=== PATIENT | female | born 1975 | race Caucasian/White ===

== ENCOUNTER 2018-08-28 03:21 | Inpatient (IN) | payer SELFPAY ==
[2018-08-28] MEDS: NS 1,000 ML IV ×4 (04:15→22:01)
[2018-08-28] MEDS: CHARCOAL ACTIVATED LIQUID 25 GM/120 ML BTL PO (04:15)
[2018-08-28 04:23] LABS: BASO # 0.1 10^3/uL (0.0-0.2); BASO % 0.4 % (0.0-1.0); EOS # 0.2 10^3/uL (0.0-0.50); EOS % 1.3 % (0.0-3.0); HEMATOCRIT 41.5 % (36.0-47.0); HEMOGLOBIN 13.9 g/dl (12.0-15.5); IMMATURE GRANULOCYTE % 0.5 % (0-3.0); LYMPH # 2.7 10^3/uL (1.5-4.5); LYMPH % 23.5 % (24.0-44.0); MEAN CORPUSCULAR HEMOGLOBIN 30.2 pg (27.0-33.0); MEAN CORPUSCULAR HGB CONC 33.5 g/dl (32.0-36.5); MEAN CORPUSCULAR VOLUME 90.2 fl (80.0-96.0); MONO # 0.8 10^3/uL (0.0-0.8); MONO % 7.1 % (0.0-5.0); NEUTROPHILS # 7.6 10^3/uL (1.8-7.7); NEUTROPHILS % 67.2 % (36.0-66.0); PLATELET COUNT, AUTOMATED 332 10^3/uL (150-450); RED CELL DISTRIBUTION WIDTH 13.5 % (11.5-14.5); WHITE BLOOD COUNT 11.3 10^3/uL (4.0-10.0)
[2018-08-28] MEDS ORDERED: ONDANSETRON 4MG/2ML VIAL (J2405) As Ordered (04:24)
[2018-08-28] MEDS: ONDANSETRON 4MG/2ML VIAL (J2405) IV (04:30)
[2018-08-28 04:44] LABS: AMPHETAMINES LEVEL URINE NEGATIVE (NEGATIVE); BARBITURATES URINE NEGATIVE (NEGATIVE); BENZODIAZEPINES URINE NEGATIVE (NEGATIVE); CANNABINOIDS URINE NEGATIVE (NEGATIVE); COCAINE METABOLITE URINE NEGATIVE (NEGATIVE); METHADONE URINE NEGATIVE (NEGATIVE); OPIATES URINE NEGATIVE (NEGATIVE); PHENCYCLIDINE URINE NEGATIVE (NEGATIVE)
[2018-08-28 04:45] LABS: ACETAMINOPHEN LEVEL < 2.0 UG/ML (10.0-30.0); ALBUMIN 4.1 GM/DL (3.2-5.2); ALBUMIN/GLOBULIN RATIO 1.08 (1.00-1.93); ALKALINE PHOSPHATASE 103 U/L (45-117); ALT/SGPT 28 U/L (12-78); ANION GAP 9 MEQ/L (8-16); AST/SGOT 19 U/L (7-37); BILIRUBIN,DIRECT < 0.1 MG/DL (0.0-0.2); BILIRUBIN,TOTAL 0.3 MG/DL (0.2-1.0); BLOOD UREA NITROGEN 8 MG/DL (7-18); CALCIUM LEVEL 9.1 MG/DL (8.5-10.1); CARBON DIOXIDE LEVEL 30 MEQ/L (21-32); CHLORIDE LEVEL 101 MEQ/L (98-107); CPK CREATINE PHOSPHOKINASE 145 U/L (26-192); CREATININE FOR GFR 0.68 MG/DL (0.55-1.30); ETHYL ALCOHOL (ETHANOL) 0.133 % (0.000-0.010); GLOMERULAR FILTRATION RATE > 60.0 (>58); GLUCOSE, FASTING 97 MG/DL (70-100); POTASSIUM SERUM 3.3 MEQ/L (3.5-5.1); SALICYLATE LEVEL 2.9 MG/DL (5.0-30.0); SODIUM LEVEL 140 MEQ/L (136-145); TOTAL PROTEIN 7.9 GM/DL (6.4-8.2)
[2018-08-28] MEDS ORDERED: ONDANSETRON 4MG/2ML VIAL (J2405) IV (05:30)
[2018-08-28] MEDS ORDERED: DEXTROSE 50% 50 ML SYRINGE IV (05:45)
[2018-08-28] MEDS: KCL 10MEQ/100ML SWI (KRUN) 10 MEQ in APPROPRIATE DILUENT 1 EA IV (05:45)
[2018-08-28] MEDS ORDERED: GLUCAGON FOR INJ 1 MG VIAL (J1610) SC (05:45)
[2018-08-28] MEDS ORDERED: GLUCOSE 4 GM CHEW TABLET PO (05:45)
[2018-08-28] MEDS ORDERED: LORazepam 2 MG/ML VIAL (J2060) IV (06:00)
[2018-08-28] MEDS: HEPARIN SOD (PORCINE) 5000 UNITS/ML VIAL SC ×3 (06:00→22:01)
[2018-08-28] MEDS: THIAMINE HCL 200 MG/2 ML VIAL (J3411) IV (06:00)
[2018-08-28 06:02] LABS: MAGNESIUM LEVEL 2.5 MG/DL (1.8-2.4)
[2018-08-28 09:07] LABS: BEDSIDE GLUCOSE 102 MG/DL (70-105)
[2018-08-28 10:52] LABS: BEDSIDE GLUCOSE 94 MG/DL (70-105)
[2018-08-28 15:38] LABS: BEDSIDE GLUCOSE 94 MG/DL (70-105)
[2018-08-28 22:14] LABS: BEDSIDE GLUCOSE 105 MG/DL (70-105)
[2018-08-29 05:36] LABS: HEMATOCRIT 34.7 % (36.0-47.0); MEAN CORPUSCULAR HEMOGLOBIN 29.6 pg (27.0-33.0); MEAN CORPUSCULAR HGB CONC 32.6 g/dl (32.0-36.5); MEAN CORPUSCULAR VOLUME 90.8 fl (80.0-96.0); PLATELET COUNT, AUTOMATED 257 10^3/uL (150-450); RED BLOOD COUNT 3.82 10^6/uL (4.00-5.40); RED CELL DISTRIBUTION WIDTH 13.6 % (11.5-14.5); WHITE BLOOD COUNT 9.6 10^3/uL (4.0-10.0)
[2018-08-29] MEDS: NS 1,000 ML IV (05:36)
[2018-08-29] MEDS: HEPARIN SOD (PORCINE) 5000 UNITS/ML VIAL SC ×2 (05:36→15:48)
[2018-08-29 05:43] LABS: HEMOGLOBIN 11.3 g/dl (12.0-15.5)
[2018-08-29 06:03] LABS: ALBUMIN 2.8 GM/DL (3.2-5.2); ALBUMIN/GLOBULIN RATIO 0.85 (1.00-1.93); ALKALINE PHOSPHATASE 82 U/L (45-117); ALT/SGPT 22 U/L (12-78); ANION GAP 7 MEQ/L (8-16); AST/SGOT 14 U/L (7-37); BILIRUBIN,TOTAL 0.3 MG/DL (0.2-1.0); BLOOD UREA NITROGEN 11 MG/DL (7-18); CALCIUM LEVEL 7.7 MG/DL (8.5-10.1); CARBON DIOXIDE LEVEL 26 MEQ/L (21-32); CHLORIDE LEVEL 110 MEQ/L (98-107); GLOMERULAR FILTRATION RATE > 60.0 (>58); GLUCOSE, FASTING 89 MG/DL (70-100); POTASSIUM SERUM 3.6 MEQ/L (3.5-5.1); SODIUM LEVEL 143 MEQ/L (136-145); TOTAL PROTEIN 6.1 GM/DL (6.4-8.2)
[2018-08-29] MEDS: THIAMINE 100 MG TAB PO (10:00)
[2018-08-29] MEDS: FOLIC ACID 1 MG TAB PO (10:00)
[2018-08-29 19:18] LABS: BEDSIDE GLUCOSE 102 MG/DL (70-105)
== END 2018-08-29 20:13 | DRG 812 ==
LOC: M ED 03:21 → M ED INP 05:28 → M PCU 12:52
DX: T46.4X2A Poisoning by angiotensin-converting-enzyme inhibitors, intentional self-harm, initial encounter (principal); R45.851 Suicidal ideations; T46.6X2A Poisoning by antihyperlipidemic and antiarteriosclerotic drugs, intentional self-harm, initial encounter; T46.902A Poisoning by unspecified agents primarily affecting the cardiovascular system, intentional self-harm, initial encounter; T38.3X2A Poisoning by insulin and oral hypoglycemic [antidiabetic] drugs, intentional self-harm, initial encounter; F17.200 Nicotine dependence, unspecified, uncomplicated; Z85.3 Personal history of malignant neoplasm of breast; F32.9 Major depressive disorder, single episode, unspecified; Z90.11 Acquired absence of right breast and nipple; Z90.12 Acquired absence of left breast and nipple; Y92.009 Unspecified place in unspecified non-institutional (private) residence as the place of occurrence of the external cause

== ENCOUNTER 2018-08-29 20:21 | Inpatient (IN) | payer SELFPAY ==
[~2018-08-29 20:21] MED LIST: ACETAMINOPHEN TAB 650MG DOSE (2X325MG) PO; MAALOX 30 ML SUSP *UDC PO; MOM 30ML SUSPENSION UDC PO
[2018-08-29] MEDS: PARoxetine 20 MG TAB PO (21:55)
[2018-08-29] MEDS: VENLAFAXINE **XR** 75MG CAPSULE PO (21:55)
[2018-08-29] MEDS: traZODone 50 MG TAB PO (23:48)
[2018-08-30] MEDS: VENLAFAXINE **XR** 75MG CAPSULE PO (08:37)
[2018-08-30] MEDS: PARoxetine 20 MG TAB PO (08:38)
[2018-08-30] MEDS: NICOTINE 21MG/24HR 1 EA TRANSDERMAL TD (08:38)
[2018-08-30] MEDS: traZODone 50 MG TAB PO (22:30)
[2018-08-31] MEDS: NICOTINE 21MG/24HR 1 EA TRANSDERMAL TD (09:00)
[2018-08-31] MEDS: VENLAFAXINE **XR** 75MG CAPSULE PO (09:32)
[2018-08-31] MEDS: PARoxetine 20 MG TAB PO (09:32)
[2018-08-31] MEDS: traZODone 50 MG TAB PO (23:31)
[2018-09-01] MEDS: NICOTINE 21MG/24HR 1 EA TRANSDERMAL TD (09:00)
[2018-09-01] MEDS: PARoxetine 20 MG TAB PO (09:42)
[2018-09-01] MEDS: VENLAFAXINE **XR** 75MG CAPSULE PO (09:42)
== END 2018-09-01 15:45 | disposition home or self-care (01) | DRG 751 ==
LOC: M PSY 20:21
DX: F33.2 Major depressive disorder, recurrent severe without psychotic features (principal); F17.210 Nicotine dependence, cigarettes, uncomplicated; G47.00 Insomnia, unspecified; Z79.899 Other long term (current) drug therapy; Z85.3 Personal history of malignant neoplasm of breast; Z90.11 Acquired absence of right breast and nipple; Z90.12 Acquired absence of left breast and nipple